=== PATIENT | male | born 1960 | race Caucasian/White ===

== ENCOUNTER 2022-01-30 09:36 | Emergency (ER) | payer OTHER, SELFPAY ==
[2022-01-30 09:46] VITALS: BP 139/94; PULSE 102; RESP 18; TEMP 36.9; O2SAT 98; BMI 26.6
[2022-01-30 09:52] LABS: MANUAL DIFF FLAG NO
[2022-01-30 09:56] LABS: Basophils Absolute Auto 0.1 X10*3/uL (0.0-0.2); Eosinophils Absolute Auto 0.3 X10*3/uL (0.0-0.4); Hematocrit 40.7 % (42.0-52.0); Hemoglobin 13.9 g/dl (14.0-18.0); Imm Gran Abs Auto 0.03 X10*3/uL (0.00-0.03); Imm Gran Pct Auto 0.4 % (0.0-0.4); Lymphocytes Percent Auto 11.8 % (20-40); Mean Corpuscular HGB Conc 34.2 g/dl (31.0-36.0); Mean Corpuscular Hemoglobin 30.6 pg (27.0-33.0); Mean Corpuscular Volume 89.6 fL (80.0-98.0); Monocytes Absolute Auto 0.9 X10*3/uL (0.1-1.2); Monocytes Percent Auto 10.1 % (2-11); Neutrophils Absolute Auto 6.2 x10*3/uL (2.0-8.3); Neutrophils Percent Auto 73.7 % (45-73); Platelet Count 389 X10*3/uL (160-400); Red Blood Count 4.54 X10*6/uL (4.60-5.80); Red Cell Distribution Width 12.4 % (11.0-16.0); White Blood Count 8.4 X10*3/uL (4.8-10.8)
[2022-01-30 10:02] LABS: D Dimer High Sensitivity 2389 NG/ML
[2022-01-30 10:13] LABS: Anion Gap 15 (12-20); Blood Urea Nitrogen 17 mg/dL (9-16); Calcium 8.8 mg/dL (8.4-10.2); Carbon Dioxide 21 mmol/L (22-29); Chloride 105 mmol/L (96-108); Creatinine Clr Calc Pharmacy 63.8; Estimated Glomerular Filt Rate > 60; Glucose Random 136 mg/dL (60-115); Potassium 3.8 mmol/L (3.3-5.1); Sodium 137 mmol/L (135-145)
--- NOTE | 2022-01-30 11:21 | ED.GENADULT ---
HPI - General Adult General Chief complaint: Extremity Problem Stated complaint: swollen inflammed joints Time Seen by Provider: 01/30/22 11:21 Source: patient Mode of arrival: ambulatory Limitations: no limitations History of Present Illness HPI narrative: Patient with inflammed joints. Left knee swollen for 2 weeks, right knee and ankle swollen for 1 week. Patient with a history of gout, right MCP toe inflammed, now Right wrist with swelling and pain. Onset (ago): week(s) Severity: moderate Quality: aching Associated symptoms: other (swelling and pain of the joints) Related Data Previous Rx's Medication Instructions Recorded colchicine 0.6 mg tablet (Colcrys) 0.6 mg PO BID #7 tab 01/30/22 indomethacin 50 mg capsule 50 mg PO TID #20 cap 01/30/22 Allergies Allergy/AdvReac Type Severity Reaction Status Date / Time No Known Allergies Allergy Unverified 05/27/20 14:53 [No Known Allergies*] Review of Systems Constitutional: Constitutional: Reports no additional constitutional complaints Eyes: Eyes: Reports no additional eye complaints ENT: Denies dizziness Cardiovascular: Cardiovascular: Reports no additional cardiovascular complaints Respiratory: Respiratory: Reports as per HPI Gastrointestinal: Gastrointestinal: Reports no additional gastrointestinal complaints Musculoskeletal: Musculoskeletal: Reports no additional musculoskeletal complaints Integumentary/Breasts: Skin/Breast: Denies rash Neurologic: Reports system reviewed and no additional complaints, except as documented, Denies dizziness and Denies Sensory deficit (Neuro) Psychiatric: Psychiatric: Denies anxiety [facility] Social History Social History Advance Directives: No Advance Directives Information Provided: Yes Physical Exam ED Vital Signs: Vital Signs - 24 hr 01/30/22 09:46 Temperature 98.4 F Pulse Rate 102 H Respiratory Rate 18 Blood Pressure 139/94 H Pulse Oximetry 98 BMI result Body Mass Index 26.6 Const General: healthy appearing Nutritional Appearance: average body habitus Orientation/consciousness: oriented to person and patient oriented x3 Limitations: no limitations HENMT Head: Yes normal to inspection Ears: external ears normal General nose exam: Normal external nose present Mouth: Normal oral and palatal mucosa present and oropharynx normal Throat: Yes posterior oropharynx normal Eyes General: appearance normal, both eyes and all related structures Neck Neck: Yes normal visual inspection Chest Chest palpation & inspection: normal inspection of the chest Resp Auscultation: clear to auscultation bilaterally Cardio Jugular venous distension: no JVD Rate: regular rate Rhythm: regular rhythm Heart sounds: S1 normal heart sound present and S2 normal heart sound present GI Inspection: Yes normal to inspection Palpation (GI): Soft to palpation, nontender and No hepatosplenomegaly present Auscultation: normal bowel sounds General: Yes no CVA tenderness Back/Spine/Pelvis Back: no CVA tenderness Skin General skin exam: no rashes or lesions noted Neuro General: oriented to person and patient oriented x3 Cranial nerves: Yes CN's II-XII intact bilaterally Motor exam (neuro): 5/5 motor strength present throughout Sensory Exam: No Sensory deficit (Neuro) Extrem Other: left knee with effusion and pain on range of motion no erythema, Right great toe MCP with swelling and slight erythema, Psych Appearance: grossly normal Course Reevaluation(s) Reevaluation #1: The ddimer is secondary to long inflammation and not a clot. He has inflammed knees, podagra and right wrist. There is no evidence of PE or dvt. Will start indocin and colcrys. Will also check for lyme, ehrlichia and amebiasis Time: 11:47 Medical Decision Making Lab Data Result diagrams: 01/30/22 09:49 01/30/22 09:49 Labs: Lab Results 01/30/22 01/30/22 01/30/22 Range/Units 09:49 09:49 09:49 WBC 8.4 (4.8-10.8) X10*3/uL RBC 4.54 L (4.60-5.80) X10*6/uL Hgb 13.9 L (14.0-18.0) g/dl Hct 40.7 L (42.0-52.0) % MCV 89.6 (80.0-98.0) fL MCH 30.6 (27.0-33.0) pg MCHC 34.2 (31.0-36.0) g/dl RDW 12.4 (11.0-16.0) % Plt Count 389 (160-400) X10*3/uL MPV 9.0 L (9.4-12.4) fL Immature Gran % (Auto) 0.4 (0.0-0.4) % Neut % (Auto) 73.7 H (45-73) % Lymph % (Auto) 11.8 L (20-40) % Lyman % (Auto) 10.1 (2-11) % Eos % (Auto) 3.0 (0-4) % Baso % (Auto) 1.0 (0-2) % Lymph # (Auto) 1.0 L (1.2-4.9) X10*3/uL Lyman # (Auto) 0.9 (0.1-1.2) X10*3/uL Eos # (Auto) 0.3 (0.0-0.4) X10*3/uL Baso # (Auto) 0.1 (0.0-0.2) X10*3/uL Abs Immat Gran (auto) 0.03 (0.00-0.03) X10*3/uL Absolute Neuts (auto) 6.2 (2.0-8.3) x10*3/uL Absolute Nucleated RBC 0.000 (0.0-0.012) X10*3/uL Nucleated RBC % (auto) 0.0 (0.0-0.2) /100WBC D-Dimer High Sensitivty 2389 NG/ML Sodium 137 (135-145) mmol/L Potassium 3.8 (3.3-5.1) mmol/L Chloride 105 (96-108) mmol/L Carbon Dioxide 21 L (22-29) mmol/L Anion Gap 15 (12-20) BUN 17 H (9-16) mg/dL Creatinine 1.19 (0.5-1.4) mg/dL Estim Creat Clear Calc 63.8 Estimated GFR > 60 Random Glucose 136 H (60-115) mg/dL Calcium 8.8 (8.4-10.2) mg/dL Discharge Plan Discharge Clinical Impression: Gout, Arthralgia Patient Disposition: Home, Self-Care Instructions: Low Purine Diet (ED), Gout (ED) Prescriptions: New colchicine [Colcrys] 0.6 mg tablet 0.6 mg PO BID Qty: 7 0RF indomethacin 50 mg capsule 50 mg PO TID Qty: 20 0RF Rx Instructions: administer with food or milk Referrals: Santos Cardona MD [Primary Care Provider] - 1 week
[2022-01-30] MEDS: Ketorolac Tromethamine 60 MG/2 ML VIAL IM (12:01)
[2022-01-30] MEDS: Colchicine 0.6 MG TABLET 1.2 MG PO (12:44)
[2022-02-01 18:27] LABS: A. Phagocytphilium DNA,RT-PCR NOT DETECTED (NOT DETECTED); Babesia Microti DNA, RT-PCR NOT DETECTED (NOT DETECTED); Borrelia Miyamotoi,DNA RT-PCR NOT DETECTED (NOT DETECTED); E.Chaffeensis DNA RT-PCR NOT DETECTED (NOT DETECTED); Lyme(Borrelia ssp)DNA RT-PCR NOT DETECTED (NOT DETECTED); Source-Tick borne disease BLOOD
== END 2022-01-30 12:53 | disposition home or self-care (01) ==
PROVIDERS: Emergency Provider Emergency Medicine; PCP Internal Medicine
DX: M10.9 Gout, unspecified (principal); M25.50 Pain in unspecified joint
CPT/HCPCS: 36415; 80048; 85025; 85379; 87798; 87801; 96372; 99283; 99284; J1885

== ENCOUNTER → 2022-04-17 09:56 | Outpatient (BNVA) | payer OTHER, SELFPAY | PROVIDERS: PCP Internal Medicine; Visit Provider Physician Assistant | DX: S46.212A Strain of muscle, fascia and tendon of other parts of biceps, left arm, initial encounter (principal) | CPT/HCPCS: 99202 ==

== ENCOUNTER 2023-07-05 13:16 | Outpatient (REF) | payer OTHER, SELFPAY ==
--- NOTE | ~2023-07-05 | XR_ITS ---
EXAMINATION: XR ANKLE, RIGHT CLINICAL INFORMATION: Right ankle pain and swelling COMPARISON: None available. TECHNIQUE: AP, lateral, and mortise views of the right ankle. FINDINGS: No fracture. Alignment is anatomic. No erosions. Joint spaces are maintained. Small Achilles enthesophyte and/or calcification at the insertion the Achilles tendon. XR/XR ankle RT min 3V IMPRESSION: No acute osseous abnormality.
== END 2023-07-05 13:17 | disposition home or self-care (01) ==
LOC: HO.HMGCX 13:16
PROVIDERS: PCP Internal Medicine; Visit Provider Internal Medicine
DX: M25.571 Pain in right ankle and joints of right foot (principal); M25.471 Effusion, right ankle
CPT/HCPCS: 73610

== ENCOUNTER 2023-08-07 10:35 | Outpatient (REF) | payer OTHER, SELFPAY ==
--- NOTE | ~2023-08-07 | XR_ITS ---
EXAMINATION: XR ANKLE, RIGHT CLINICAL INFORMATION: Pain. COMPARISON: Radiographs dated 07/05/2023. TECHNIQUE: AP, lateral, and mortise views of the right ankle. FINDINGS: No fracture. Alignment is anatomic. No erosions. Joint spaces are maintained. Soft tissues are normal. XR/XR ankle RT min 3V IMPRESSION: Normal right ankle.
== END 2023-08-07 10:36 | disposition home or self-care (01) ==
LOC: HO.HOSX 10:35
PROVIDERS: Visit Provider Physician Assistant
DX: M76.61 Achilles tendinitis, right leg (principal)
CPT/HCPCS: 73610; 99212

== ENCOUNTER 2023-08-07 11:21 | Outpatient (AMB) | payer OTHER, SELFPAY ==
--- NOTE | 2023-08-07 11:26 | A.OFFVIS_ITS ---
Intake Intake Visit Reasons: NewProb- RT Achilles pain Intake Note: Akbar is a 62 year old male who presents today for a evaluation of his right achilles heel pain. Patient reports ongoing pain when he stepped on a nail which punctured through his boot and hit his heel. Patient reports that the nail didn't go in too far but he gets these flare ups that causes a big bubble to form behind his ankle. Allergies No Known Allergies [No Known Allergies*] Allergy (Verified 08/07/23 11:26) HPI NewProb- RT Achilles pain HPI Details 62-year-old male who presents in the off ice today for an evaluation of right ankle pain. The patient reports having ongoing pain in the right Achilles status post stepping on a nail which punctured his boot hitting the foot. He states the nail did not go far into the foot but he had redness and swelling in the area of the Achilles. He was seen by his PCP where he was tested for gout and was negative and given prednisone. This helped with the erythema and edema but did not fully resolve symptoms. [facility] Social History Current occupational status: retired Current occupation: rt hand Review of Systems Const All systems reviewed & are unremarkable except as noted in HPI and below Physical Exam Const General: cooperative and no acute distress Orientation/consciousness: patient oriented x3 Resp Effort & Inspection: normal respiratory effort and able to speak in complete sentences Cardio Peripheral pulses: Peripheral pulses 2+ throughout Skin General skin exam: no rashes or lesions noted Neuro General: patient oriented x3 Extrem Other: Right ankle: Localized edema over the right Achilles. No surrounding erythema or drainage. No sign of active infection. No tenderness to palpation of the Achilles. Able to dorsiflex and plantarflex. Negative Bingham test. NVI. Assessment & Plan Assessment & Plan (1) Right Achilles tendinitis: Code(s): M76.61 - Achilles tendinitis, right leg Plan Mr. Jarvis is a 62-year-old male who presents in the office today for an evaluation of right ankle pain. The patient reports having ongoing pain in the right Achilles status post stepping on a nail which punctured his boot hitting the foot. He states the nail did not go far into the foot but he had redness and swelling in the area of the Achilles. He was seen by his PCP where he was tested for gout and was negative and given prednisone. This helped with the erythema and edema but did not fully resolve symptoms. The patient was placed in a tall walking boot, off the shelf, while in the office today. He may weight bear as tolerated. There are 2 wedges in the boot to try and offload the Achilles tendon. I have placed a referral to physical therapy. Follow up will be in [address] Bell in the office, or sooner if needed. X-rays of the right ankle which were obtained while in the office today and were reviewed by me, Savita Escamilla PA-C, revealed no evidence of acute fracture or dislocation. Soft tissue edema over the Achilles tendon attachment. Orders: Orders XR ankle RT min 3V Today M25.579 - Pain in unspecified ankle and joints of unspecified foot PT Evaluation and Treatment Today M76.61 - Achilles tendinitis, right leg Patient Instructions: Scribed for Savita Escamilla PA-C by Betty Chaparro medical device sales, on 08/07/2023 at 11:27 am, EST. Coding Level of Care Code New Pt Level 4 (02214) Diagnoses Right Achilles tendinitis M76.61
== END 2023-08-07 12:00 | disposition home or self-care (01) ==
PROVIDERS: PCP Internal Medicine; Visit Provider Physician Assistant
DX: M76.61 Achilles tendinitis, right leg (principal)
CPT/HCPCS: 99214

== ENCOUNTER 2023-09-21 10:06 | Outpatient (AMB) | payer OTHER, SELFPAY ==
--- NOTE | 2023-09-21 10:10 | MHC.OFFVIS ---
Intake Intake Visit Reasons: OV - RT Achilles tendinitis Intake Note: Akbar is a 63 year old male who presents today for a follow up of his right Achilles tendonitis. He was last seen with Savita and was placed in a walking boot with 2 wedges and given physical therapy. He presents today wihtout boot, he is still feeling sore but still has a significant area of swelling Allergies No Known Allergies [No Known Allergies*] Allergy (Verified 08/07/23 11:26) HPI OV - RT Achilles tendinitis HPI Details Akbar is a 63 year old man who presents to discuss his right ankle pain. He complains of pain in the back of his right ankle, which began after he stepped on a nail which slightly punctured his heel. He was seen by GIA Escamilla on 08/07/23, given a tall walking boot with a heel wedge, and sent for PT. He says there has been some improvement in his symptoms but he continues to have pain. He is seen today without his walking boot, and complains of some mild pain with WB, but says this is improved from prior. He does report significant swelling in his ankle, which he is concerned about. He says his PCP ruled out Gout. [facility] Social History Current occupational status: retired Current occupation: rt hand Review of Systems Const All systems reviewed & are unremarkable except as noted in HPI and below Physical Exam Const General: no acute distress, alert and awake Orientation/consciousness: patient oriented x3 HEENT Head: Yes normocephalic and Yes atraumatic Eyes EOM: EOMs intact bilaterally Resp Effort & Inspection: normal respiratory effort and able to speak in complete sentences Cardio Jugular venous distension: no JVD Skin General skin exam: turgor normal Rashes: no rashes Neuro General: patient oriented x3 Extrem Other: moderate Chris's deformity with minimal pain and a very mildly + calcaneal squeeze test. walking comforably achilles intact with no tendinous abnormality per palpation Psych Appearance: grossly normal Affect: normal affect Attitude: cooperative Results Reviewed Results Reviewed: I personally reviewed relevant radiographs. 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 Heel lifts if pain worsens but at this time symptomatic treatment is all that is indicated. I discussed this with him at length and he is satisfied. Plan Scribed for Rik Bell MD by Stew Morales, medical delivery technician, on 09/21/23 at 10:17 AM, EST. Coding Level of Care Code Est Pt Level 4 (48558) Diagnoses Acquired Chris's deformity M92.60
== END 2023-09-21 11:30 | disposition home or self-care (01) ==
PROVIDERS: PCP Internal Medicine; Referring Provider Internal Medicine; Visit Provider Orthopaedic Surgery
DX: M92.61 Juvenile osteochondrosis of tarsus, right ankle (principal); M21.6X1 Other acquired deformities of right foot
CPT/HCPCS: 99212

== ENCOUNTER → 2023-09-21 10:06 | Outpatient (BNVA) | payer OTHER, SELFPAY | PROVIDERS: PCP Internal Medicine; Visit Provider Orthopaedic Surgery | DX: M92.61 Juvenile osteochondrosis of tarsus, right ankle (principal) | CPT/HCPCS: 99212 ==

== ENCOUNTER 2024-02-13 09:20 | Day surgery (SDC) | payer OTHER, SELFPAY ==
[2023-11-12 15:18] VITALS: BMI 30.4
--- NOTE | 2023-11-13 10:44 | HO.ANESPROP2 ---
HPI - Anesthesia Eval Consult details Narrative: 63yo M for Colonoscopy PMF[facility] Active Problems Active Problems: All Active Problems (Updated 11/12/23 @ 15:18 by Colette Bryson RN) Acquired Chris's deformity (Acute) Chris's deformity of right heel (Acute) Right Achilles tendinitis (Acute) Rupture of left distal biceps tendon (Acute) Past Medical History Medical History (Updated 11/12/23 @ 15:18 by Colette Bryson RN) Gout HTN (hypertension) Surgical History Surgical History (Updated 11/12/23 @ 15:18 by Colette Bryson RN) Hx of inguinal hernia repair Hx of umbilical hernia repair H/O colonoscopy Social History Social History Current occupational status: retired Current occupation: rt hand Meds Allergies Allergy/AdvReac Type Severity Reaction Status Date / Time No Known Allergies Allergy Verified 08/07/23 11:26 [No Known Allergies*] Home Medications Medication Instructions Recorded Confirmed Last Taken Type allopurinol 300 mg tablet 300 mg PO DAILY 04/17/22 11/12/23 Unknown History losartan 50 mg tablet 50 mg PO DAILY 11/12/23 11/12/23 Unknown History Exam Height,Weight and Vital Signs: Height 5 ft 8 in Weight 90.718 kg Assessment and Plan Assessment Anesthesia Assessment: Chart Reviewed
[2024-02-12 07:22] VITALS: BMI 30.4
--- NOTE | 2024-02-12 12:05 | HO.ANESPROP2 ---
Documented by User: Yennifer Raya NP 02/12/24 12:05 HPI - Anesthesia Eval Consult details Narrative: 63yo M for Colonoscopy [facility] Active Problems Active Problems: All Active Problems Acquired Chris's deformity (Acute) Chris's deformity of right heel (Acute) Right Achilles tendinitis (Acute) Rupture of left distal biceps tendon (Acute) Past Medical History Medical History Gout HTN (hypertension) Surgical History Surgical History (Updated 02/13/24 @ 10:24 by Ivory Coleman MD) Hx of inguinal hernia repair Hx of umbilical hernia repair H/O colonoscopy Social History Social History Patient Tobacco Use Status: Former Tobacco user Use of substances other than those prescribed or required for medical reasons: No Are you DNR?: No Advance Directives: No Advance Directives Information Provided: Yes Current occupational status: retired Current occupation: rt hand Meds Allergies Allergy/AdvReac Type Severity Reaction Status Date / Time No Known Allergies Allergy Verified 08/07/23 11:26 [No Known Allergies*] Home Medications ?Medication ?Instructions ?Recorded ?Confirmed ?Last Taken ?Type allopurinol 300 mg tablet 300 mg PO DAILY 04/17/22 11/12/23 Unknown History losartan 50 mg tablet 50 mg PO DAILY 11/12/23 11/12/23 Unknown History naproxen 500 mg tablet 500 mg PO BID 02/12/24 02/12/24 Unknown History Exam Height,Weight and Vital Signs: Height 5 ft 8 in Weight 90.718 kg Assessment and Plan Assessment Anesthesia Assessment: Chart Reviewed Documented by User: Ivory Coleman MD 02/13/24 10:26 [facility] Past Medical History Medical History Gout HTN (hypertension) Family History Family history of problems with anesthesia: No Surgical History Surgical History (Updated 02/13/24 @ 10:24 by Ivory Coleman MD) Hx of inguinal hernia repair Hx of umbilical hernia repair H/O colonoscopy History of Problems with Anesthesia: No Social History Social History Patient Tobacco Use Status: Former Tobacco user Use of substances other than those prescribed or required for medical reasons: No Are you DNR?: No Advance Directives: No Advance Directives Information Provided: Yes Current occupational status: retired Current occupation: rt hand Meds Allergies Allergy/AdvReac Type Severity Reaction Status Date / Time No Known Allergies Allergy Verified 08/07/23 11:26 [No Known Allergies*] Home Medications ?Medication ?Instructions ?Recorded ?Confirmed ?Last Taken ?Type allopurinol 300 mg tablet 300 mg PO DAILY 04/17/22 11/12/23 Unknown History losartan 50 mg tablet 50 mg PO DAILY 11/12/23 11/12/23 Unknown History naproxen 500 mg tablet 500 mg PO BID 02/12/24 02/12/24 Unknown History Exam Height,Weight and Vital Signs: Height 5 ft 8 in Weight 90.718 kg Vital Signs Temp Pulse Resp BP Pulse Ox O2 Del Method 02/13/24 10:00 98.1 F 73 18 152/104 H 96 Room Air Airway Mallampati Class: II TM Dist: >3cm Neck ROM: Full Loose/Missing/Broken Teeth: Yes (Missing teeth bottom back right and left) Heart: RRR Lungs: CTAB Assessment and Plan Assessment Anesthesia Assessment: Anesthesia Plan Discussed and Chart Reviewed Final Anesthetic Review Family History of Problems with Anesthesia: No History of Problems with Anesthesia: No NPO: Yes ASA Class: II Final Preanesthetic Review: No Changes in Pt Med Stat, Meds/Allgs Chart Reviewed, Consent Obtained/Reviewed and Anes Risks/Benef Reviewed Patient Risk: Low Procedure Risk: Low Assessment/Block/Sedation in SS: Assess/Block/Sedation-SS Anesthetic Plan Anesthetic Plan: GA and TIVA Disposition: Standard PACU
[2024-02-13 09:46] VITALS: BMI 32.0
[2024-02-13 10:00] VITALS: BP 152/104; PULSE 73; RESP 18; TEMP 36.7; O2SAT 96
[2024-02-13] MEDS: Lactated Ringers 1,000 ML 100 ML IVCONT (10:08)
--- NOTE | 2024-02-13 10:09 | PC.NURSE ---
IV insertion RIGHT wrist, left wrist documented in error, unable to edit
[2024-02-13 11:27] VITALS: BP 135/85; PULSE 82; RESP 16; TEMP 36.1; O2SAT 94
--- NOTE | 2024-02-13 11:30 | PM.OP ---
Brief Operative Note Date of Service: 02/13/24 Pre-op diagnosis: Screening Post-op diagnosis: other (Colon polyp) Procedure: Colonoscopy to the cecum and TI with hot snare polypectomy Surgeon: Chirag Bingham MD Anesthesia: MAC Was an Hydrochloric Acid Operator used for this Procedure?: No Estimated blood loss (mL): 0 Pathology: other (A. Ascending colon polyp) Condition: stable Disposition: PACU
[2024-02-13 11:42] VITALS: BP 145/88; PULSE 62; RESP 16; TEMP 36.1; O2SAT 96
--- NOTE | 2024-02-13 12:22 | OP_ITS ---
DATE OF SERVICE: 02/13/2024 SURGEON: Chirag Bingham MD INDICATIONS: The patient presents for evaluation of colorectal cancer screening and personal history of colon polyps. Full consent has been obtained from him for this, including risks of bleeding and perforation. PREOPERATIVE DIAGNOSIS: POSTOPERATIVE DIAGNOSIS: PROCEDURE PERFORMED: Colonoscopy to the cecum and terminal ileum with hot snare polypectomy. ESTIMATED BLOOD LOSS: COMPLICATIONS: ANESTHESIA: Monitored anesthesia care. ASSISTANTS: SPECIMENS: PREOPERATIVE DIAGNOSES: Colorectal cancer screening and personal history of colon polyp. POSTOPERATIVE DIAGNOSES: Colorectal cancer screening, personal history of colon polyp, colon polyp, diverticulosis, and internal hemorrhoids. DESCRIPTION OF PROCEDURE: The patient was placed in the left lateral decubitus position. The digital rectal exam revealed no abnormalities. The Olympus video pediatric colonoscope was then entered into the rectum and advanced easily to the cecum. Once in the cecum, I did identify normal-appearing cecal pouch with appendiceal orifice and a normal-appearing ileocecal valve. The terminal ileum was cannulated and appeared normal. The scope withdrawn back in the colon. The entire cecum and ileocecal valve appeared normal. The scope was slowly withdrawn assessing all mucosal surfaces carefully. Preparation was excellent. In the proximal ascending colon, was an approximately 6 to 8 mm polyp, which was removed by hot snare polypectomy and recovered by suction. The polypectomy site appeared clean, without any sign of residual polyp nor bleeding. I did not visualize any other polyps, colitis, or angiodysplasias. There was a mild amount of sigmoid diverticulosis. In the rectum, the scope was retroflexed, visualizing internal hemorrhoids, but no other pathology. The rectal mucosa appeared normal. The scope was straightened and withdrawn from the patient. He tolerated the procedure well and was returned to the recovery area in stable condition. IMPRESSION: 1. Colon polyp. 2. Diverticulosis. 3. Internal hemorrhoids. PLAN: The results of the pathology will be checked. I would recommend a repeat colonoscopy in 5 years for further screening. He was advised not to use any aspirin and NSAIDs for 1 week. MD MERRY Tate/CEE / [phone]
--- NOTE | 2024-02-14 06:26 | PC.NURSE ---
24hr update documented in paper chart.
== END 2024-02-13 12:13 | disposition home or self-care (01) ==
PROVIDERS: PCP Internal Medicine; Visit Provider Internal Medicine
PROC: 0DJD8ZZ Inspection of Lower Intestinal Tract, Via Natural or Artificial Opening Endoscopic (ICD-10-PCS; CPT 45378; principal; 2024-02-13 10:30)
DX: Z12.11 Encounter for screening for malignant neoplasm of colon (principal); D12.2 Benign neoplasm of ascending colon; K57.30 Diverticulosis of large intestine without perforation or abscess without bleeding; K64.8 Other hemorrhoids; Z86.010 Personal history of colon polyps; I10 Essential (primary) hypertension; Z79.899 Other long term (current) drug therapy
CPT/HCPCS: 45385; 88305; J1596; J2704

== ENCOUNTER 2024-06-20 10:32 | Outpatient (REF) | payer OTHER, SELFPAY ==
[2024-06-20 10:56] LABS: MANUAL DIFF FLAG NO
[2024-06-20 11:15] LABS: Basophils Absolute Auto 0.1 X10*3/uL (0.0-0.2); Basophils Percent Auto 1.3 % (0-2); Eosinophils Absolute Auto 0.4 X10*3/uL (0.0-0.4); Eosinophils Percent Auto 7.9 % (0-4); Hematocrit 43.7 % (42.0-52.0); Hemoglobin 15.1 g/dl (14.0-18.0); Imm Gran Abs Auto 0.02 X10*3/uL (0.00-0.03); Imm Gran Pct Auto 0.4 % (0.0-0.4); Lymphocytes Absolute Auto 1.3 X10*3/uL (1.2-4.9); Lymphocytes Percent Auto 23.1 % (20-40); Mean Corpuscular HGB Conc 34.6 g/dl (31.0-36.0); Mean Corpuscular Hemoglobin 33.2 pg (27.0-33.0); Mean Platelet Volume 9.4 fL (9.4-12.4); Monocytes Absolute Auto 0.4 X10*3/uL (0.1-1.2); Monocytes Percent Auto 7.9 % (2-11); Neutrophils Absolute Auto 3.2 x10*3/uL (2.0-8.3); Neutrophils Percent Auto 59.4 % (45-73); Platelet Count 223 X10*3/uL (160-400); Red Blood Count 4.55 X10*6/uL (4.60-5.80); Red Cell Distribution Width 12.7 % (11.0-16.0); White Blood Count 5.4 X10*3/uL (4.8-10.8)
[2024-06-20 11:52] LABS: Alanine Aminotransferase 15 U/L (0-40); Albumin Level 4.3 g/dL (3.5-5.0); Alkaline Phosphatase 42 U/L (39-117); Anion Gap 11 (12-20); Aspartate Amino Transferase 15 U/L (5-37); Bilirubin Total 0.8 mg/dL (0.0-1.0); Blood Urea Nitrogen 11 mg/dL (9-16); Calcium 9.4 mg/dL (8.4-10.2); Carbon Dioxide 28 mmol/L (22-29); Chloride 106 mmol/L (96-108); Cholesterol 192 mg/dL (<200); Estimated Glomerular Filt Rate > 60; Glucose Fasting 111 mg/dL (60-99); HDL Cholesterol 115 mg/dL (>40); LDL Cholesterol Calculated 69 mg/dL (<100); Potassium 4.9 mmol/L (3.3-5.1); Sodium 140 mmol/L (135-145); Triglycerides 42 mg/dL (<150)
[2024-06-20 12:15] LABS: Prostate Specific Antigen 1.57 ng/mL (<0.05-4.0)
[2024-06-23 23:07] LABS: Lyme Abs Screen <0.90 index
== END 2024-06-20 10:33 | disposition home or self-care (01) ==
LOC: HO.LAB 10:32
PROVIDERS: PCP Internal Medicine; Visit Provider Internal Medicine
DX: R53.83 Other fatigue (principal); W57.XXXA Bitten or stung by nonvenomous insect and other nonvenomous arthropods, initial encounter; E78.5 Hyperlipidemia, unspecified; Y93.9 Activity, unspecified; Y92.9 Unspecified place or not applicable
CPT/HCPCS: 36415; 80053; 80061; 84153; 85025; 86617; 86618

== ENCOUNTER 2025-03-18 11:42 | Outpatient (AMB) | payer OTHER, SELFPAY ==
[2025-03-18 11:44] VITALS: BP 158/87; PULSE 62; RESP 16; TEMP 36.6; O2SAT 96; BMI 30.6
--- NOTE | 2025-03-18 11:44 | MHC.PC.OV ---
Vital Signs 03/18/25 11:44 Height 5 ft 9.29 in Weight 209 lb BMI 30.6 BP 158/87 H Respiration 16 Pulse 62 Pulse Source Pulse Oximeter Temp 97.8 F Temp Source Temporal Artery Scan Pulse Oximetry (%) 96 Oxygen Delivery Method Room Air Intake Visit Reasons: medication reconciliation Supervising Editor News Reel Required: No Accompanied by: Self / Same As Patient Allergies No Known Allergies (No Known Allergies*) Allergy (Verified 03/18/25 14:16) Medication List - Last Reconciled 03/18/25 by Lore Benitez PA-C allopurinol 300 mg PO DAILY amlodipine 10 mg PO DAILY losartan 100 mg PO DAILY HPI medication reconciliation HPI Details The patient is a 64-year-old male presenting for a new patient appointment and medication refills. He has a history of hypertension, currently managed with amlodipine, and reports that his blood pressure has been averaging around 150 mmHg systolic, despite medication adherence. Previously, his blood pressure was as high as 190/100 mmHg, leading to adjustments in his medication regimen. The patient also has a history of gout, for which he is taking allopurinol. He reports no recent flare-ups and is seeking a refill for his medication. Preventative care measures were discussed, including the need for blood work to check PSA, hemoglobin A1c, thyroid function, vitamin B12, and vitamin D levels. The patient has not had an annual physical this year and plans to complete the blood work prior to his next appointment. [facility] Medical History (Updated 03/18/25 @ 14:23 by Lore Benitez PA-C) Preventative health care Establishing care with new doctor, encounter for History of gout Gout HTN (hypertension) Surgical History Hx of inguinal hernia repair Hx of umbilical hernia repair H/O colonoscopy Social History Current occupation: rt hand Review of Systems Const Details: - Cardiovascular: Reports elevated blood pressure readings. Denies chest pain or palpitations. - Musculoskeletal: Denies recent gout flare-ups. Physical exam (Primary Care) Vital Signs: Last Vital Signs Temp 97.8 F 03/18/25 11:44 Pulse 62 03/18/25 11:44 Resp 16 03/18/25 11:44 BP 158/87 H 03/18/25 11:44 Pulse Ox 96 03/18/25 11:44 Oxygen Delivery Method Room Air 03/18/25 11:44 Care Plan Goal for BP management: <140/90 patient to continue amlodipine 10 mg and losartan 100 mg patient to monitor his blood pressure with a blood pressure diary and return with his next appointment with blood pressure machine and blood pressure diary patient understands agrees with this plan BMI result Body Mass Index 30.6 BMI Assessment/Plan discussion: High BMI High, discussed plan: lifestyle, weight reduction, dietary, physical activity and alcohol moderation Tobacco/Smoking Status: Tobacco use Status Patient Tobacco Use Status 03/18/25 11:50 Const Other: Appearance: Alert. Oriented X3. No acute distress. Head: Normal external exam. Normocephalic. Atraumatic. Eyes: Pupils are equal, round, and reactive to light. Extraocular movements intact. Conjunctiva and sclera normal. Eyelids normal. Ears: External auditory canal normal. Tympanic membranes normal. Throat: Pharynx normal. Uvula midline. Moist mucous membranes. Neck: Normal inspection. Neck supple. Full range of motion. No adenopathy. Thyroid Normal. No meningeal signs. No neck mass noted. Cardiovascular: Blood pressure 155/89. Normal heart rate and rhythm. Heart sound normal. No murmurs noted. Pulses normal throughout. Respiratory: No respiratory distress. Painless inspiration. Breath sounds normal. No wheezes/rales/rhonchi noted. Chest nontender. No accessory muscle usage noted or decreased air movement noted. Abdomen: Soft and nontender. Bowel sounds normal in all 4 quadrants. No distention noted. No organomegaly noted. No visible injury noted. Back: No costovertebral angle tenderness. Full range of motion noted. Skin: Skin warm and dry. Normal skin color. Normal skin turgor. No rashes/lesions/lacerations noted. Extremities: No lower extremity edema. Extremities exhibit normal range of motion. Extremities nontender. Neuro: Oriented X 3. No motor deficit. No sensory deficit. Reflexes normal. Coding Level of Care Code New Pt Level 4 (04179) Complex EM visit Add On G2211 Diagnoses Establishing care with new doctor, encounter for Z76.89 HTN (hypertension) I10 Gout M10.9 Preventative health care Z00.00 Assessment & Plan Assessment & Plan (1) Establishing care with new doctor, encounter for: Code(s): Z76.89 - Persons encountering health services in other specified circumstances Category: Medical (2) HTN (hypertension): Code(s): I10 - Essential (primary) hypertension Category: Medical Plan: The patient will continue with amlodipine 10 mg daily for hypertension management. He is advised to monitor his blood pressure at home using a blood pressure cuff and maintain a diary of readings to bring to the next appointment. If elevated readings persist, medication adjustments may be considered at the follow-up visit. (3) Gout: Code(s): M10.9 - Gout, unspecified Category: Medical Plan: The patient will continue with allopurinol for gout management. A uric acid level will be added to the blood work to monitor the condition. (4) Preventative health care: Code(s): Z00.00 - Encounter for general adult medical examination without abnormal findings Category: Medical Plan: Blood work including PSA, hemoglobin A1c, thyroid function test, vitamin B12, and vitamin D levels will be conducted prior to the next appointment. The patient is advised to complete the tests while fasting and schedule them a few days before the next visit. Plan Plan Patient was informed and verbally consented to the use of an ambient scribe for clinic note documentation during this visit. 1. Essential Hypertension The patient will continue with amlodipine 10 mg daily for hypertension management. He is advised to monitor his blood pressure at home using a blood pressure cuff and maintain a diary of readings to bring to the next appointment. If elevated readings persist, medication adjustments may be considered at the follow-up visit. 2. Gout The patient will continue with allopurinol for gout management. A uric acid level will be added to the blood work to monitor the condition. 3. Preventative Care Blood work including PSA, hemoglobin A1c, thyroid function test, vitamin B12, and vitamin D levels will be conducted prior to the next appointment. The patient is advised to complete the tests while fasting and schedule them a few days before the next visit. I discussed with the patient the importance of monitoring his blood pressure at home and maintaining a diary of readings to assess the effectiveness of his current medication regimen. We also reviewed the need for preventative blood work, including PSA and hemoglobin A1c, to monitor for potential prostate issues and diabetes. The patient was informed about the fasting requirement for the blood tests and advised to complete them a few days before his next appointment. Orders: Orders C Reactive Protein Today Z00.00 - Encounter for general adult medical examination without abnormal findings Complete Blood Count Auto Diff Today Z00.00 - Encounter for general adult medical examination without abnormal findings Hemoglobin A1c Today Z00.00 - Encounter for general adult medical examination without abnormal findings Magnesium Today Z00.00 - Encounter for general adult medical examination without abnormal findings Vitamin B12 and Folate Today Z00.00 - Encounter for general adult medical examination without abnormal findings Vitamin D 25-OH Total Today Z00.00 - Encounter for general adult medical examination without abnormal findings PSA,Total (Free>4and<10) Today Z00.00 - Encounter for general adult medical examination without abnormal findings TSH reflex Free T4 Today Z00.00 - Encounter for general adult medical examination without abnormal findings Comprehensive [place]. Panel Fast Today Z00.00 - Encounter for general adult medical examination without abnormal findings Liver Panel Today Z00.00 - Encounter for general adult medical examination without abnormal findings Lipid Panel Today Z00.00 - Encounter for general adult medical examination without abnormal findings Uric Acid Today Z87.39 - Personal history of other diseases of the musculoskeletal system and connective tissue Medications: New amlodipine 10 mg PO DAILY 90 tabs 3RF allopurinol 300 mg PO DAILY 90 tabs 3RF losartan 100 mg PO DAILY 90 tabs 1RF Patient Instructions: - Continue taking amlodipine and allopurinol as prescribed. - Monitor blood pressure at home and keep a diary of readings. - Complete fasting blood work before the next appointment. - Schedule blood tests a few days before the next visit.
--- OUTSIDE RECORDS SUMMARY | 2025-03-18 12:52 | XMS_ITS | Patient Health Record ---
Author Organization [facility] Address [address] [place] [address] Care Team Providers Care Director Of Corporate Responsibility Name Role Phone Santos Cardona MD Primary Care Provider UnavailChirag Breaux Unavailable [phone] Allergies No Known Allergies Reason For Referral No Information Medications Medication SIG (Take, Route, Frequency, Duration) Notes Start Date End Date Status Naproxen 500 MG Oral for 30 Ac tive Losartan Potassium 50 MG Oral for 90 Active Allopurinol 300 MG Oral for 90 Active Social History Tobacco Use: Social History Observation Description Date Details (start date - stop date) Former Smoker NA - NA Tobacco Use/Smoking Question Answer Notes Patient is a former smoker How long has it been since you last smoked? > 10 years Alcohol Screen Question Answer Notes Did you have a drink contain ing alcohol in the past year? Yes How often did you have a dri nk containing alcohol in the past year? 2 to 4 times a month (2 points) How many drinks did you have on a typical day when you were drinking in the past year? 1 or 2 drinks (0 point) How often did you have 6 or more drinks on one occasion in the past year? Never (0 point) Points 2 Interpretation Negative Section Notes: Nonsmoker; occ alcohol Problems Problem Type SNOMED Code ICD Code Onset Dates Problem Status W/U Status Risk Notes Problem 656562448 Colon cancer screening (Z12.11) Active confirmed Problem Diverticulosis o f large intestine without perforation or abscess without bleeding (K57.30) Active confirmed Problem 560695913837418 Preprocedural examination (Z01.818) Active confirmed Problem 712282027 History of colon polyps (Z86.010) Active confirmed Plan Of Treatment Pending Test Test Name Order Date Pathology 02/13/2024 Future Test Test Name Order Date COLONOSCOPY 08/21/2023 Insurance Providers Payer Name Payer Address Payer Phone Subscriber Number Group Number Insured Name Patient Relationship to Insured Coverage Start Date Coverage End Date [facility] [address] [address] [place], [place] [id number] VINAYAK GONZALEZ Self - patient is the insured Medical (General) History Medical History History ICD Code Hypertension Gout Colonoscopy age 56 in [facility] with removal of 1 polyp. Told to repeat a colonoscopy in 5 years Denies NH,DM,CVA,Lung disease,renal dise ase Surgical History Surgery Date(Month/Year) Umbilical hernia 2019 Inguinal hernia repair age 18
== END 2025-03-18 12:05 | disposition home or self-care (01) ==
PROVIDERS: PCP Internal Medicine; Visit Provider Physician Assistant Medical
DX: Z76.89 Persons encountering health services in other specified circumstances (principal); I10 Essential (primary) hypertension; M10.9 Gout, unspecified; Z00.00 Encounter for general adult medical examination without abnormal findings

== ENCOUNTER → 2025-03-18 11:42 | Outpatient (BNVA) | payer OTHER, SELFPAY | PROVIDERS: PCP Internal Medicine; Visit Provider Physician Assistant Medical | DX: Z76.89 Persons encountering health services in other specified circumstances (principal); I10 Essential (primary) hypertension; M10.9 Gout, unspecified; Z79.899 Other long term (current) drug therapy | CPT/HCPCS: 99202 ==

== ENCOUNTER 2025-06-09 12:53 | Outpatient (AMB) | payer OTHER, SELFPAY ==
--- OUTSIDE RECORDS SUMMARY | 2024-02-13 06:30 | XMS_ITS ---
Author Organization [facility] Address [address] [place] [address] Care Team Providers Care Golf Ball Inspector Name Role Phone Dulce (RETIRED) Santos SHEPPARD Primary Care Provider Unavailable Chirag Bingham Unavailable [phone] REASON FOR VISIT COLON SCREENING Problems Problem Type SNOMED Code ICD Code Onset Dates Problem Status W/U Status Risk Notes Problem Diverticular disease of colon (327511305) Diverticulosis of large intestine without perforation or abscess without bleeding (K57.30) Active confirmed Encounters Encounter Location Date Provider Diagnosis [facility] [address] [place], [place] [id number] 02/13/2024 Chirag Bingham Encounter for scre ening colonoscopy Z12.11 ; Colon polyps K63.5 ; Diverticulosis of large intestine without perforation or abscess without bleeding K57.30 and Internal hemorrhoids K64.8 Assessments Encounter Date Diagnosis (ICD Code) Assessment Notes Treatment Notes Treatment Clinical Notes Section Notes 02/13/2024 Encounter for screening colonoscopy (ICD-10 - Z12.11) 02/13/2024 Colon polyps (ICD-10 - K63.5) 02/13/2024 Diverticulosis of large intestine without perforation or abscess without bleeding (ICD-10 - K57.30) 02/13/2024 Internal hemorrhoids (ICD-10 - K64.8) Plan Of Treatment No Information Progress Notes * VINAYAK GONZALEZDOB:1960 (64 yo M)Acc No.[id number]:02/13/2024 COLON WITH MAC Patient: Lopez FADYVINAYAK ZULETA Provider: Damon Bingham MD :1960 A ge:63 Y S ex:Male Date:02/13/2024 Address:[address] [place] [address], [id number] Pcp:Santos Cardona (RETIRED) MD Subjective: * Chief Complaints: * 1 . COLON SCREENING. * Medical History: Objective: * Vitals: Assessment: * Assessment: 1. E ncounter for screening colonoscopy - Z12.11 (Primary) 2 . C olon polyps - K63.5 3 . D iverticulosis of large intestine without perforation or abscess without bleeding - K57.30 4 . I nternal hemorrhoids - K64.8 Plan: * Treatment: * Procedure Codes: 4 5385 LESION REMOVAL COLONOSCOPY, Modifiers: 33 * * The named appointment provid er may or may not be the originator of this progress note, and it is not deemed complete until electronically signed by the appointment provider. Sign off status: Pending * Provider: Damon Bingham MD Date: 0 02/13/2024 Generated for Carly miner/Michael/Nihsiitting on: 0 06/09/2025 01:59 PM EDT
[2025-06-09 13:00] VITALS: BP 143/71; PULSE 64; RESP 14; TEMP 36.7; O2SAT 96; BMI 30.5
--- NOTE | 2025-06-09 13:00 | MHC.PC.OV ---
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 Accompanied by: Self / Same As Patient Allergies No Known Allergies (No Known Allergies*) Allergy (Verified 06/09/25 13:25) Medication List - Last Reconciled 06/09/25 by Lore Benitez PA-C allopurinol 300 mg PO DAILY amlodipine 10 mg PO DAILY losartan 100 mg PO DAILY Tobacco use date assessed: 06/09/25 Dental Screening Dental Screen Date: 06/09/25 Did you have a dental visit in the last 12 months?: No Did you have a dental problem in the last 6 months where you did not have access to dental care?: No HPI physical HPI Details The patient is a 64-year-old male presenting for a physical exam and management of chronic conditions including hypertension and gout. Hypertension has been a concern, with previous readings being elevated, but recent measurements show improvement with a reading of 137/78 mmHg. The patient is currently on amlodipine 10 mg and losartan 100 mg for blood pressure management. He has been advised to monitor his blood pressure regularly to assess the need for medication adjustment. The patient has a history of gout, for which he takes allopurinol 300 mg daily. He has experienced multiple flare-ups affecting his ankle, knee, and wrist. A referral to rheumatology has been suggested for specialized management. The patient reports potential mold exposure in his home, leading to sinus issues and skin swelling. A referral to a requirements engineer and consideration for allergy testing have been discussed. During a recent colonoscopy, the patient was found to have diverticulosis, polyps, and hemorrhoids. He has been educated on the potential symptoms and complications of diverticulosis. Epidermal cysts were noted in the ear, which are not currently causing significant symptoms. An ENT referral has been made for further evaluation. Social History - Housing: Lives in a house built in [id number], reports mold exposure. - Recreational Activities: Enjoys camping, often with friends and family. [facility] Medical History (Updated 06/09/25 @ 17:02 by Lore Benitez PA-C) Diverticulosis Annual physical exam Epidermal cyst of ear Mold exposure Preventative health care Establishing care with new doctor, encounter for History of gout Gout HTN (hypertension) Surgical History (Updated 06/09/25 @ 17:02 by Lore Benitez PA-C) Hx of inguinal hernia repair Hx of umbilical hernia repair H/O colonoscopy (~02/13/24) Family History Father Prostate cancer Mother Hypothyroidism Brother Hypothyroidism Social History Housing: House Alcohol intake: current Alcohol intake frequency: a few times a week Alcohol type: beer Patient Tobacco Use Status: Former Tobacco user service: No Current occupational status: retired Cognitive needs: No Hearing needs: No Vision needs: Yes (rx glasses) Questionnaire PHQ-9 Over the last 2 weeks, how often have you been bothered by any of the following problems? 1. Little interest or pleasure in doing things: not at all 2. Feeling down, depressed, or hopeless: not at all 3. Trouble falling or staying asleep, or sleeping too much: not at all 4. Feeling tired or having little energy: not at all 5. Poor appetite or overeating: not at all 6. Feeling bad about yourself - or that you are a failure or have let yourself or your family down: not at all 7. Trouble concentrating on things, such as reading the newspaper or watching television: not at all 8. Moving or speaking so slowly that other people could have noticed. Or the opposite - being so fidgety or restless that you have been moving around a lot more than usual: not at all 9. Thoughts that you would be better off or of hurting yourself in some way: not at all Total score: 0 Depression Screening Interpretation: Negative Depression Screening Done: Yes 67749 - PHQ-9 Billing: Yes Source: Developed by Drs. Chirag Maat, Stephania Wilkins, Antoni Patel and colleagues, with an educational matthew from [employer]. Thrive Questionnaire Date Thrive assessed: 06/09/25 I am a: Patient What is your living situation today?: I have a steady place to live Within the past 12 months, did the food you bought not last and you didn't have the money to get more?: Never true Within the past 12 months, did you worry whether your food would run out before you got money to buy more?: Never true Do you have trouble paying for medicines?: No Do you have trouble getting transportation to medical appointments?: No Do you have trouble paying your heating and electricity bill?: No Do you have trouble taking care of your child, family member or friend?: No Do you have trouble with day-to-day activities such as bathing, preparing meals, shopping, managing finances, etc.?: No Are you currently unemployed and looking for a job?: No Are you interested in more education?: No Please select the resources that you would like help with: None THRIVE Score: 0 AUDIT C Alcohol Use Questionnaire (AUDIT-C) 1. How often do you have a drink containing alcohol?: 2-3 times a week 2. How many drinks containing alcohol do you have on a typical day when you are drinking?: 1 or 2 3. How often do you have six or more drinks on one occasion?: Never Total Score: 3 Score Reviewed/Action Taken: No VIRIDIANA-7 AMB Questionnaire VIRIDIANA-7 Date VIRIDIANA - 7 assessed: 06/09/25 Feeling nervous, anxious, or on edge: 0 = Not at all Not being able to stop or control worryin = Not at all Worrying too much about different things: 0 = Not at all Trouble relaxin = Not at all Being so restless that it is hard to sit still: 0 = Not at all Becoming easily annoyed or irritable: 0 = Not at all Feeling afraid as if something awful might happen: 0 = Not at all Total VIRIDIANA-7 score (0-4 normal; 5-9 mild; 10-14 moderate; 15-21 severe): 0 Source: Developed by Drs. Chirag Mata, Stephania Wilkins, Antoni Patel and colleagues, with an educational matthew from [employer]. VIRIDIANA-7 Assessment Billing VIRIDIANA-7 Assessment Tool: VIRIDIANA-7 Assessment 65262 Review of Systems Const Details: - Cardiovascular: Reports elevated blood pressure previously. Denies chest pain or palpitations. - Musculoskeletal: Reports gout flare-ups in ankle, knee, and wrist. - Dermatological: Reports skin swelling and sinus issues potentially related to mold exposure. - Gastrointestinal: Denies abdominal pain, reports history of diverticulosis. - ENT: Reports ear clogging, denies significant hearing loss. All systems reviewed & are unremarkable except as noted in HPI and below Physical exam (Primary Care) Vital Signs: Last Vital Signs Temp 98.0 F 06/09/25 13:00 Pulse 64 06/09/25 13:00 Resp 14 06/09/25 13:00 BP 143/71 H 06/09/25 13:00 Pulse Ox 96 06/09/25 13:00 Oxygen Delivery Method Room Air 06/09/25 13:00 Care Plan Goal for BP management: <140/90 at Goal BMI result Body Mass Index 30.5 BMI Assessment/Plan discussion: High BMI High, discussed plan: lifestyle, weight reduction, dietary, physical activity, alcohol moderation and other Tobacco/Smoking Status: Tobacco use Status Tobacco use date assessed 06/09/25 06/09/25 13:08 Patient Tobacco Use Status Former Tobacco user 06/09/25 13:08 PHQ-9: PHQ-9 Score PHQ-9: Total score 0 06/09/25 13:27 Depression Screening Interpretation: Negative Thrive Assessment: Date of Thrive Assessment Date Thrive assessed 06/09/25 06/09/25 13:08 Const Other: Appearance: Alert. Oriented X3. No acute distress. Head: Normal external exam. Normocephalic. Atraumatic. Eyes: Pupils are equal, round, and reactive to light. Extraocular movements intact. Conjunctiva and sclera normal. Eyelids normal. Ears: External auditory canal normal. Tympanic membranes normal. Presence of epidermal cysts noted in the ear. Throat: Pharynx normal. Uvula midline. Moist mucous membranes. Neck: Normal inspection. Neck supple. Full range of motion. No adenopathy. Thyroid Normal. No meningeal signs. No neck mass noted. Cardiovascular: Normal heart rate and rhythm. Heart sound normal. No murmurs noted. Pulses normal throughout. Respiratory: No respiratory distress. Painless inspiration. Breath sounds normal. No wheezes/rales/rhonchi noted. Chest nontender. No accessory muscle usage noted or decreased air movement noted. Abdomen: Soft and nontender. Bowel sounds normal in all 4 quadrants. No distention noted. No organomegaly noted. No visible injury noted. Back: No costovertebral angle tenderness. Full range of motion noted. Skin: Skin warm and dry. Normal skin color. Normal skin turgor. No rashes/lesions/lacerations noted. Swelling and pus noted on the nose, possibly related to mold exposure. Extremities: No lower extremity edema. Extremities exhibit normal range of motion. Extremities nontender. Neuro: Oriented X 3. No motor deficit. No sensory deficit. Reflexes normal. Office Procedures Flu Questionnaire Does the patient have a severe egg allergy?: No Does the patient have severe life threatening allergies?: No Does the patient have a fever or illness today?: No Has the patient ever had Guillain-[place] Syndrome?: No Has the patient ever had any past reaction to a flu shot?: No Immunizations Fluarix [id number] (PF) 45 mcg (15 mcg x 3)/0.5 mL IM syringe Performing Provider: Lore Benitez PA-C Performing Location: [facility] [facility] Documented (not given) by: ITA Dominguez on 06/09/25 13:09 Reason Not Given: Patient Refused Boostrix Tdap 2.5 Lf unit-8 mcg-5 Lf/0.5 mL intramuscular syringe Performing Provider: Lore Benitez PA-C Performing Location: [facility] [place] [facility] [place] Administered by: ITA Dominguez on 06/09/25 13:21 Dose Route Admin Location Dispensed Lot Number Expiration Date [employer] Sales Representative 0.5 mL IM Left Deltoid 0.5 mL [id number] 07/30/27 90527-708-43 [employer] Total Dispensed Waste 0.5 mL 0 % VIS Given Date VIS Provided VIS Publication Date 06/09/25 Single Vaccine 21 Eligibility Eligibility Date Funding Source Not [facility] Eligible 06/09/25 Private Results Reviewed Results Reviewed: - Labs: CBC, CMP, uric acid, thyroid function, vitamin B12, vitamin D, PSA, hemoglobin A1c, inflammatory markers, and urinalysis ordered. - Imaging: Chest x-ray ordered to assess for mold exposure effects. Coding Level of Care Code New Pt Level 4 (02761) New Pt Prev Care 40-64y(79187) Diagnoses Annual physical exam Z00.00 HTN (hypertension) I10 Gout M10.9 Mold exposure Z77.120 Diverticulosis K57.90 Epidermal cyst of ear L72.0 Additional Codes VIRIDIANA-7 Assessment Billing - VIRIDIANA-7 Assessment Tool: VIRIDIANA-7 Assessment 30665 ([id number]) PHQ-9 - 99949 - PHQ-9 Billing: Yes ([id number]) Time Spent (min) 50 Assessment & Plan Assessment & Plan (1) Annual physical exam: Code(s): Z00.00 - Encounter for general adult medical examination without abnormal findings Category: Medical (2) HTN (hypertension): Code(s): I10 - Essential (primary) hypertension Category: Medical Plan: The patient is currently on amlodipine 10 mg and losartan 100 mg for hypertension management. Blood pressure readings have improved to 137/78 mmHg. The patient is advised to continue monitoring blood pressure regularly to determine if medication adjustments are necessary. (3) Gout: Code(s): M10.9 - Gout, unspecified Category: Medical Plan: The patient is on allopurinol 300 mg daily for gout management. He has experienced multiple flare-ups and is referred to rheumatology for specialized care. (4) Mold exposure: Code(s): Z77.120 - Contact with and (suspected) exposure to mold (toxic) Category: Social Hx Plan: The patient reports mold exposure at home, causing sinus issues and skin swelling. A chest x-ray has been ordered, and a referral to a requirements engineer for further evaluation is planned. (5) Diverticulosis: Code(s): K57.90 - Diverticulosis of intestine, part unspecified, without perforation or abscess without bleeding Category: Medical Plan: The patient has been diagnosed with diverticulosis following a colonoscopy. He has been educated on potential symptoms and complications, such as abdominal pain and infection. (6) Epidermal cyst of ear: Code(s): L72.0 - Epidermal cyst Category: Medical Plan: Epidermal cysts have been noted in the ear, with no significant symptoms reported. An ENT referral has been made for further evaluation. Plan Plan Patient was informed and verbally consented to the use of an ambient scribe for clinic note documentation during this visit. 1. Hypertension The patient is currently on amlodipine 10 mg and losartan 100 mg for hypertension management. Blood pressure readings have improved to 137/78 mmHg. The patient is advised to continue monitoring blood pressure regularly to determine if medication adjustments are necessary. 2. Gout The patient is on allopurinol 300 mg daily for gout management. He has experienced multiple flare-ups and is referred to rheumatology for specialized care. 3. Mold Exposure The patient reports mold exposure at home, causing sinus issues and skin swelling. A chest x-ray has been ordered, and a referral to a requirements engineer for further evaluation is planned. 4. Diverticulosis The patient has been diagnosed with diverticulosis following a colonoscopy. He has been educated on potential symptoms and complications, such as abdominal pain and infection. 5. Epidermal Cysts In The Ear Epidermal cysts have been noted in the ear, with no significant symptoms reported. An ENT referral has been made for further evaluation. During the visit, we discussed the management of hypertension with the current medication regimen of amlodipine and losartan, emphasizing the importance of regular blood pressure monitoring. For gout, the patient is on allopurinol and has been referred to rheumatology for further management due to multiple flare-ups. We addressed concerns about mold exposure, planning a chest x-ray and dermatology referral for further evaluation. The patient was informed about the findings of diverticulosis from a recent colonoscopy and educated on potential symptoms and complications. Epidermal cysts in the ear were noted, and an ENT referral was made for further evaluation. Orders: Orders UA CC w/rflx Micro + Cult Today Z00.00 - Encounter for general adult medical examination without abnormal findings Influenza [id number] Immunization Today Z23 - Encounter for immunization TDaP Immunization Today Z23 - Encounter for immunization Lyme IgG/IgM w/reflex to WB Today Z00.00 - Encounter for general adult medical examination without abnormal findings XR chest 2V Today Z77.120 - Contact with and (suspected) exposure to mold (toxic) Referrals Dermatology Referral Z77.120 - Contact with and (suspected) exposure to mold (toxic) Rheumatology Referral M10.9 - Gout, unspecified Ear/Nose/Throat Referral L72.0 - Epidermal cyst Medications: Refilled allopurinol 300 mg PO DAILY 90 tabs 3RF amlodipine 10 mg PO DAILY 90 tabs 3RF losartan 100 mg PO DAILY 90 tabs 3RF Patient Instructions: - Continue taking amlodipine and losartan as prescribed for blood pressure management. - Monitor blood pressure regularly and report any significant changes. - Take allopurinol daily for gout and follow up with rheumatology as scheduled. - Schedule and complete the chest x-ray and dermatology appointment for mold exposure evaluation. - Be aware of symptoms related to diverticulosis and seek medical attention if necessary. - Follow up with ENT for evaluation of ear cysts.
--- OUTSIDE RECORDS SUMMARY | 2025-06-09 13:59 | XMS_ITS | Patient Health Record ---
Author Organization [facility] Address [address] [place] [address] Care Team Providers Care Pot Room Tapper Name Role Phone Dulce (RETIRED) Santos SHEPPARD Primary Care Provider Unavailable Chirag Bingham Unavailable [phone] Allergies No Known Allergies Reason For Referral [...] Problem Status W/U Status Risk Notes Problem [id number] Colon cancer screening (Z12.11) Active confirmed Problem Diverticular disease of colon (579877900) Diverticulosis of large intestine without perforation or abscess without bleeding (K57.30) Active confirmed Problem [id number] Preprocedural examination (Z01.818) Active confirmed Problem [id number] History of colon polyps (Z86.010) Active confirmed Plan Of Treatment Pending Test Test Name Order Date Pathology 02/13/2024 Future Test Test Name Order Date COLONOSCOPY 08/21/2023 Insurance Providers Payer Name Payer Address Payer Phone Subscriber Number Group Number Insured Name Patient Relationship to Insured Coverage Start Date Coverage End Date [facility] [address] [address] [place], [place] [id number] VINAYAK GONZALEZ Self - patient is the insured Medical (General) History Medical History History ICD Code Hypertension Gout Colonoscopy age 56 in [place] with removal of 1 polyp. Told to repeat a colonoscopy in 5 years Denies RI,DM,CVA,Lung disease,renal dise ase Surgical History Surgery Date(Month/Year) Umbilical hernia 2019 Inguinal hernia repair age 18
[2025-06-09 16:57] VITALS: BP 137/78
== END 2025-06-09 13:44 | disposition home or self-care (01) ==
LOC: HO.HMCSH 12:53
PROVIDERS: PCP Physician Assistant Medical; Visit Provider Physician Assistant Medical
DX: Z00.00 Encounter for general adult medical examination without abnormal findings (principal); I10 Essential (primary) hypertension; M10.9 Gout, unspecified; Z77.120 Contact with and (suspected) exposure to mold (toxic); K57.90 Diverticulosis of intestine, part unspecified, without perforation or abscess without bleeding; L72.0 Epidermal cyst; Z23 Encounter for immunization

== ENCOUNTER 2025-06-09 12:53 | Outpatient (REF) | payer OTHER, SELFPAY ==
--- NOTE | ~2025-06-09 | XR_ITS ---
EXAMINATION: XR CHEST 2 VIEWS HISTORY: Z77.120 - Contact with and (suspected) exposure to mold (toxic) COMPARISON: There are no prior studies available for comparison. FINDINGS: PA and lateral views of the chest are submitted. The lungs are expanded and clear. There is no pleural effusion, pneumothorax, or pulmonary vascular congestion. The heart is normal in size. There is degenerative disc disease of the spine. XR/XR chest 2V IMPRESSION: Clear lungs. Electronically signed by: Chirag Reddy MD 06/09/2025 02:20 PM EDT
[2025-06-09 16:30] LABS: MANUAL DIFF FLAG NO
[2025-06-09 16:34] LABS: Appearance Urine Clear; Glucose Urine UA Negative (Negative); PH 5.0 (5.0-9.0); Specific Gravity - Urine 1.015 (1.005-1.025); UMIC TRIGGER UACC YES
[2025-06-09 16:39] LABS: Hematocrit 40.3 % (42.0-52.0); Hemoglobin 14.3 g/dl (14.0-18.0); Imm Gran Abs Auto 0.04 X10*3/uL (0.00-0.03); Imm Gran Pct Auto 0.5 % (0.0-0.4); Lymphocytes Absolute Auto 1.0 X10*3/uL (1.2-4.9); Mean Corpuscular HGB Conc 35.5 g/dl (31.0-36.0); Mean Corpuscular Hemoglobin 32.7 pg (27.0-33.0); Mean Corpuscular Volume 92.2 fL (80.0-98.0); NRBC Abs Auto 0.000 X10*3/uL (0.0-0.012); NRBC Pct Auto 0.0 /100WBC (0.0-0.2); Platelet Count 238 X10*3/uL (160-400); Red Blood Count 4.37 X10*6/uL (4.60-5.80); White Blood Count 8.0 X10*3/uL (4.8-10.8)
[2025-06-09 17:06] LABS: Alanine Aminotransferase 12 U/L (0-40); Albumin Level 4.6 g/dL (3.5-5.0); Alkaline Phosphatase 50 U/L (39-117); Anion Gap 15 (12-20); Aspartate Amino Transferase 21 U/L (5-37); Blood Urea Nitrogen 15 mg/dL (9-16); Calcium 9.1 mg/dL (8.4-10.2); Carbon Dioxide 24 mmol/L (22-29); Chloride 106 mmol/L (96-108); Cholesterol 205 mg/dL (<200); Estimated Glomerular Filt Rate 60; HDL Cholesterol 111 mg/dL (>40); Magnesium 2.2 mg/dL (1.6-2.6); Potassium 4.5 mmol/L (3.3-5.1); Sodium 140 mmol/L (135-145); Total Protein 7.5 g/dL (6.5-8.0); Triglycerides 106 mg/dL (<150); Uric Acid 5.8 mg/dL (3.4-7.0)
[2025-06-09 17:12] LABS: PSA,Total (Free>4and<10) 1.70 ng/mL (0.00-4.00)
[2025-06-09 17:27] LABS: Folate 10.7 ng/mL (> or = 4.0); Vitamin B12 713 pg/mL (200-900)
[2025-06-10 06:33] LABS: Lyme Abs Screen <0.90 index
== END 2025-06-09 12:54 | disposition home or self-care (01) ==
LOC: HO.HMGCX 12:53
PROVIDERS: PCP Physician Assistant Medical; Visit Provider Physician Assistant Medical
DX: Z23 Encounter for immunization (principal); Z00.00 Encounter for general adult medical examination without abnormal findings; Z87.39 Personal history of other diseases of the musculoskeletal system and connective tissue; Z77.120 Contact with and (suspected) exposure to mold (toxic); Z28.82 Immunization not carried out because of caregiver refusal; I10 Essential (primary) hypertension; M10.9 Gout, unspecified; K57.90 Diverticulosis of intestine, part unspecified, without perforation or abscess without bleeding; L72.0 Epidermal cyst
CPT/HCPCS: 36415; 71046; 80053; 80061; 80076; 81001; 81003; 82248; 82306; 82607; 82746; 83036; 83735; 84153; 84443; 84550; 85025; 86140; 86617; 86618; 90471; 90715; 96127; 99396

== ENCOUNTER → 2025-06-09 14:00 | Outpatient (BNV) | payer OTHER, SELFPAY | PROVIDERS: PCP Physician Assistant Medical; Visit Provider Radiology Diagnostic Radiology | DX: Z77.120 Contact with and (suspected) exposure to mold (toxic) (principal) | CPT/HCPCS: 71046 ==